=== PATIENT | female | born 1965 | race Caucasian/White ===

== ENCOUNTER 2019-10-20 09:28 | Emergency (ER) | payer OTHER, SELFPAY ==
--- NOTE | ~2019-10-20 | CT_ITS ---
EXAMINATION: CT brain wo con EXAM DATE: 10/20/2019 10:09 INDICATION: Fall, head injury. TECHNIQUE: Spiral CT of the head was performed without contrast. Axial, coronal and sagittal images were reviewed. The dose-length product (DLP) for this examination was 529.67 mGy-cm. The exposure w as tailored according to patient size, and iterative reconstruction (ASIR) was used as additional dos e reduction technique. There is no prior study for comparison. FINDINGS: There is no acute intraparenchymal hemorrhage. No evidence of intraparenchymal brain mass lesion. No evidence of acute infarction. There is no mass effect or midline shift. The ventricles are normal in size. There are no extra-axial collections. There are no acute calvarial fractures. T here is an old left medial orbital wall. Soft tissue is unremarkable. The visualized sinuses and mas toid air cells are well aerated. IMPRESSION: 1. No acute intracranial findings. Reviewed, dictated and finalized at location B. MAN
--- NOTE | ~2019-10-20 | XR_ITS ---
EXAMINATION: XR lumbar spine min 4V DATE: 10/20/2019 10:31 INDICATION: Low back injury. TECHNIQUE: 5 views of lumbar spine were obtained. COMPARISON: None. FINDINGS: Bone alignment is normal. Vertebral body heights are normal. There is mildly decreased disc height at T12-L1 and L5-S1. There are endplate osteophytes at all levels. There is moderate bilatera l facet joint osteoarthritis at L5-S1. There is multilevel mild facet joint osteoarthritis. IMPRESSION: 1. Mild lumbar spondylosis. Reviewed, dictated and finalized at location A. STITCHER IMPRESSION: 1. Mild lumbar spondylosis.
--- NOTE | ~2019-10-20 | CT_ITS ---
EXAMINATION: CT facial & cervical spine wo EXAM DATE: 10/20/2019 10:09 INDICATION: Initial encounter following injury, with pain of the fall, head injury. TECHNIQUE: Spiral CT of the facial bones was acquired in the axial plane. Coronal reformatted images were also reviewed. Spiral CT of the cervical spine was performed without contrast. Axial images we re reviewed. Coronal and sagittal reformatted images were also reviewed. The dose-length product (DL P) for this examination was 484.69 mGy-cm. The exposure was tailored according to patient size, and iterative reconstruction (ASIR) was used as additional dose reduction technique. There is no prior s tudy for comparison. FINDINGS: FACIAL CT: There is an old left lamina papyracea fracture. There are no acute displaced nasal bone fr actures. The mandible, sinuses and orbits are intact. The orbits, globes and extraocular muscles ar e unremarkable. Minimal left ethmoid mucoperiosteal thickening. Mastoid air cells are well aerated. CERVICAL CT: There is no evidence of acute cervical fracture. The odontoid process is intact. Pre-d ens space is normal. Prevertebral soft tissue is normal. There are no soft tissue abnormalities lia ntified. There is no disc space widening or traumatic vertebral body subluxation suspected. There i s advanced disc disease and significant uncovertebral joint arthropathy causing neural foraminal sten osis at C4-5. Fused C6-T1 vertebral bodies and facet joints, congenital finding. A detailed level by level evaluation of spondylosis can be added as addendum if requested. IMPRESSION: 1. No acute facial or cervical fracture. 2. Cervical spondylosis. Reviewed, dictated and finalized at location B. GE CARPENTER
--- NOTE | ~2019-10-20 | XR_ITS ---
EXAMINATION: XR femur LT min 2V, XR femur RT min 2V DATE: 10/20/2019 10:31 INDICATION: Bilateral femur pain post fall from top TECHNIQUE: 1. Overlapping proximal and distal, AP and lateral views of the left femur were obtained. 2. Overlapping proximal and distal, AP and lateral views of the right femur were obtained. COMPARISON: None FINDINGS: Bone alignment is normal on both the left and right. No fracture. No knee joint effusions. At least mild tricompartmental osteoarthritis at the both knees characterized by mild joint space narrowing an d/or small marginal osteophytes in all 3 compartments. Severity of joint space narrowing can however be underestimated on nonweightbearing imaging. There is also symmetric minimal bilateral hip osteoart hritis with relatively preserved joint spaces. Small marginal osteophytes about the acetabula. Small amount of enthesopathic ossification along the greater trochanters. Soft tissues are unremarkable. IMPRESSION: 1. No knee joint effusions or acute osseous abnormality at either the left or right femur. 2. Relatively symmetric pattern of enthesopathic and mild degenerative skeletal changes. Reviewed, dictated and finalized at location A. INE OPERATOR SLITTER TECHNICIAN IMPRESSION: 1. No knee joint effusions or acute osseous abnormality at either the left or r ight femur. 2. Relatively symmetric pattern of enthesopathic and mild degenerative skeletal changes.
--- NOTE | ~2019-10-20 | XR_ITS ---
EXAMINATION: XR shoulder LT min 2V DATE: 10/20/2019 10:31 INDICATION: Left shoulder injury. TECHNIQUE: 4 views of left shoulder were obtained. COMPARISON: None. FINDINGS: Bone alignment is normal. No fracture. There is mild osteoarthritis of glenohumeral joint a nd severe osteoarthritis of acromioclavicular joint. IMPRESSION: 1. Polyarticular osteoarthritis. Reviewed, dictated and finalized at location A. T NURSE
[2019-10-20 09:38] VITALS: BP 159/78; PULSE 98; RESP 15; TEMP 36.4; O2SAT 97
--- NOTE | 2019-10-20 09:48 | ED.FALL ---
HPI - Fall General Chief Complaint: Extremity Injury, Upper Stated Complaint: Fell out of bathtub Time Seen by Provider: 10/20/19 09:33 Source: patient Mode of arrival: ambulatory Limitations: no limitations History of Present Illness HPI Narrative: Patient with history of morbid obesity and prior fracture to her neck and shoulder presents with chief complaint of pain to the posterior aspect of her head, face, neck, left shoulder, low back, bilateral thighs falling out of her bathtub this morning. Patient states that she cannot lift her foot up high enough so her legs caught and she fell forward landing on her face with her arms out. Patient states with her daughter's help she was able to get up off the floor. Patient denies loss of consciousness. Patient reports some tinnitus in her left ear. Patient denies changes to her vision, nausea, vomiting, abdominal pain, shortness of breath, chest pain, confusion or inability to ambulate. Patient states that she has generalized discomfort all over but reports localized pain to the aforementioned areas. Patient reports abrasion to her left elbow but denies any wounds other areas. Related Data Home Medications Medication Instructions Recorded Confirmed Lantus U-100 Insulin 50 unit SUBCUT QAM 10/02/19 10/02/19 amitriptyline 25 mg PO HS 10/02/19 10/02/19 apple cider vinegar 300 mg PO DAILY 10/02/19 10/02/19 atorvastatin 40 mg PO HS 10/02/19 10/02/19 carvedilol 6.25 mg PO Q12H 10/02/19 10/02/19 clonazepam 0.5 mg PO HS PRN 10/02/19 10/02/19 duloxetine 60 mg PO BID 10/02/19 10/02/19 gabapentin 600 mg PO BID 10/02/19 10/02/19 hydrochlorothiazide 12.5 mg PO BID 10/02/19 10/02/19 lisinopril 20 mg PO DAILY 10/02/19 10/02/19 magnesium 400 mg PO DAILY 10/02/19 10/02/19 metformin 500 mg PO BID 10/02/19 10/02/19 omega [id number] oil [Fish Oil] 1 cap PO DAILY 10/02/19 10/02/19 pen needle, diabetic [BD 10/02/19 10/02/19 Ultra-Fine Short Pen Needle] Allergies Allergy/AdvReac Type Severity Reaction Status Date / Time Sulfa (Sulfonamide Allergy Rash Verified 10/20/19 09:43 Antibiotics) Review of Systems Review of Systems: Narrative: CONSTITUTIONAL: Denies fever, chills, or sweats. EYES: Denies visual changes, redness, or discharge. ENT: Reports tinnitus denies rhinorrhea, congestion, sore throat, or otalgia. CARDIOVASCULAR: Denies chest pain, palpitations, or edema. RESPIRATORY: Denies cough or dyspnea. GASTROINTESTINAL: Denies abdominal pain, nausea, vomiting, or diarrhea. GENITOURINARY: Denies dysuria or hematuria. SKIN: Denies rash or itching. MUSCULOSKELETAL: Reports back pain, joint pain, or myalgia. NEUROLOGIC: Reports headache, denies numbness, dizziness, or weakness. PSYCHIATRIC: Denies anxiety or depression. [facility] Past Medical History Medical History (Updated 10/20/19 @ 10:54 by Cecelia De Jesus PA-C) Arthritis Asthma Coronary artery disease Reported myocardial infarction in May 2017. Cardiac catheterization done at [facility] that time apparently showed disease in a torturous vessel which was unable to be stented. She is followed by Dr. Ireland at [facility] [place]. Depression with anxiety Diabetic peripheral neuropathy Hyperlipidemia Hypertension Insulin dependent type 2 diabetes mellitus Ischemic cardiomyopathy With improved ejection fraction on echocardiogram in 2018. Kidney stones With history of cystoscopy, stone extraction, and stent. Morbid obesity Obstructive sleep apnea She did not complete formal sleep study, and thus does not use PAP therapy at bedtime. Surgical History Surgical History (Updated 10/02/19 @ 20:14 by Michelle Bustillo PA-C) Status post tonsillectomy and adenoidectomy Social History Social History (Updated 10/02/19 @ 20:15 by Michelle Bustillo PA-C) Social History: The patient lives in [place] with her 15-year-old daughter. She has an in-home caregiver. she smoked for about 3 years and quit in 1995. She drinks
[2019-10-20] MEDS: ACETAMINOPHEN 500 MG TABLET 1000 MG PO (09:51)
[2019-10-20 11:42] VITALS: BP 118/75; PULSE 85; RESP 18; O2SAT 100
== END 2019-10-20 11:43 | disposition home or self-care (01) ==
PROVIDERS: Emergency Provider Emergency Medicine
DX: M54.5 Low back pain (principal); S43.402A Unspecified sprain of left shoulder joint, initial encounter; M54.2 Cervicalgia; M79.605 Pain in left leg; M79.604 Pain in right leg; M19.90 Unspecified osteoarthritis, unspecified site; J45.909 Unspecified asthma, uncomplicated; I25.10 Atherosclerotic heart disease of native coronary artery without angina pectoris; I25.2 Old myocardial infarction; F32.9 Major depressive disorder, single episode, unspecified; E11.42 Type 2 diabetes mellitus with diabetic polyneuropathy; E78.5 Hyperlipidemia, unspecified; I10 Essential (primary) hypertension; Z87.891 Personal history of nicotine dependence; E66.01 Morbid (severe) obesity due to excess calories; Z68.43 Body mass index [BMI] 50.0-59.9, adult; W18.2XXA Fall in (into) shower or empty bathtub, initial encounter; Z79.4 Long term (current) use of insulin
CPT/HCPCS: 70450; 70486; 72110; 72125; 73030; 73552; 99284; A4565; A9270